=== PATIENT | female | born 1955 | race Caucasian/White ===

== ENCOUNTER 2017-08-21 05:55 | Day surgery (SDC) | payer OTHER ==
[2017-08-21] MEDS ORDERED: MIDAZOLAM 1 MG/ML 2 ML INJ ×2 (08:34→08:35)
[2017-08-21] MEDS ORDERED: FENTAnyl 50 MCG/ML VIAL (08:35)
== END 2017-08-21 14:28 | disposition home or self-care (01) ==
LOC: GIL 05:55
DX: Z12.11 Encounter for screening for malignant neoplasm of colon (principal); K64.8 Other hemorrhoids; K64.4 Residual hemorrhoidal skin tags
CPT/HCPCS: 45378